=== PATIENT | male | born 1955 | race Caucasian/White ===

== ENCOUNTER 2021-03-28 05:02 | Inpatient (IN) | payer MEDICARE, OTHER ==
[~2021-03-28] VITALS: Ht 165.1 cm; Wt 90.7 kg
[2021-03-28] MEDS ORDERED: LIDOCAINE 2% JEL UROJET 10 ML MM ONE ×2 (05:15→05:30)
[2021-03-28 05:30] LABS: BASOPHILS % (AUTO) 0.7 % (0.0-2.0); EOSINOPHILS % (AUTO) 2.5 % (0.0-6.0); HEMATOCRIT 35 % (39-51); HEMOGLOBIN 12.3 g/dL (13.5-17.5); LYMPHOCYTES # (AUTO) 1.1 K/uL (0.8-4.8); LYMPHOCYTES % (AUTO) 17.5 % (20.0-44.0); MEAN CORPUSCULAR HGB CONC 35 g/dl (31.0-36.0); MEAN CORPUSCULAR VOLUME 96 fL (80-96); MONOCYTES # (AUTO) 0.6 K/uL (0.1-1.30); MONOCYTES % (AUTO) 9.9 % (2.0-12.0); NEUTROPHILS # (AUTO) 4.5 K/uL (1.8-8.9); NEUTROPHILS % (AUTO) 69.4 % (43.0-81.0); PLATELET COUNT (AUTO) 210 K/uL (150-450); RED BLOOD CELL COUNT(AUTO) 3.64 MIL/uL (4.5-6.0); WHITE BLOOD COUNT (AUTO) 6.5 K/uL (4.3-11.0)
[2021-03-28 05:33] LABS: CARBON DIOXIDE 22 mmol/L (21-32); CHLORIDE 111 mmol/L (98-107); CREATININE 1.7 mg/dL (0.6-1.3); GLUCOSE 134 mg/dL (74-106); SODIUM SERUM 146 mmol/L (136-145); UREA NITROGEN, BLOOD 24 mg/dL (7-18)
[2021-03-28 05:37] LABS: BILIRUBIN,URINE Negative (NEGATIVE); COLOR,URINE YELLOW (YELLOW); LEUKOCYTE ESTERASE ,URINE Negative (NEGATIVE); NITRITE, URINE Negative (NEGATIVE); PROTEIN,URINE Negative (NEGATIVE); UGLUCOSE Negative (NEGATIVE); UROBILINOGEN,URINE 0.2 EU/dL (0.2)
[2021-03-28 05:39] LABS: ALANINE AMINOTRANSFERASE 22 U/L (12-78); ALBUMIN 3.7 g/dL (3.4-5.0); ALCOHOL, BLOOD < 3 mg/dL (0-0); ALKALINE PHOSPHATASE 72 U/L (46-116); ASPARTATE AMINOTRANSFERASE 23 U/L (15-37); BILIRUBIN,DIRECT 0.2 mg/dL (0.0-0.2); BILIRUBIN,TOTAL 0.6 mg/dL (0.2-1.0); TOTAL PROTEIN, SERUM 6.6 g/dL (6.4-8.2)
[2021-03-28 05:40] LABS: ACETAMINOPHEN < 0 ug/ml (10-30)
[2021-03-28] MEDS ORDERED: HALOPERIDOL LACTATE INJ 5 MG/ML VIAL IM ONE (13:00)
[2021-03-28] MEDS ORDERED: LORAZEPAM INJ 2 MG/ML VIAL IM/IV ONE (13:00)
[2021-03-28] MEDS ORDERED: diphenhydrAMINE HCL 50 MG/ML VIAL IM ONE (13:00)
[2021-03-28] MEDS ORDERED: diphenhydrAMINE HCL 50 MG/ML VIAL ONE (13:16)
[2021-03-28] MEDS ORDERED: HALOPERIDOL LACTATE INJ 5 MG/ML VIAL ONE (13:16)
[2021-03-28] MEDS ORDERED: LORAZEPAM INJ 2 MG/ML VIAL ONE (13:17)
[2021-03-28 16:15] VITALS: BP 150/57
[2021-03-28] MEDS ORDERED: MAGNESIUM HYDROXIDE 30 ML UDC PO PRN (16:30)
[2021-03-28] MEDS ORDERED: BLOOD SUGAR DIAGNOSTIC 1 EACH STRIP IN ONE (16:30)
[2021-03-28 17:07] VITALS: BP 120/57
[2021-03-28] MEDS: LORAZEPAM 0.5 MG TABLET PO PRN (18:06)
[2021-03-28 20:16] VITALS: BP 116/83
[2021-03-29] MEDS: LORAZEPAM 0.5 MG TABLET PO PRN ×3 (03:39→23:37)
[2021-03-29 08:00] VITALS: BP 112/78
[2021-03-29 08:15] LABS: ALBUMIN 3.9 g/dL (3.4-5.0); BILIRUBIN,TOTAL 0.6 mg/dL (0.2-1.0); CALCIUM, SERUM 8.7 mg/dL (8.5-10.1); CREATININE 1.8 mg/dL (0.6-1.3); TOTAL PROTEIN, SERUM 7.2 g/dL (6.4-8.2)
[2021-03-29 08:29] LABS: THYROID STIMULATING HORMONE 0.606 uIU/mL (0.358-3.74)
[2021-03-29] MEDS: OLANZAPINE 2.5 MG TABLET PO SCH ×2 (13:45→20:53)
[2021-03-29] MEDS: ESCITALOPRAM OXALATE (10 MG) 10 MG TABLET PO SCH (13:46)
[2021-03-29 16:00] VITALS: BP 123/76
[2021-03-29 21:00] VITALS: BP 114/75
[2021-03-30] MEDS: LORAZEPAM 0.5 MG TABLET PO PRN ×2 (05:56→16:04)
[2021-03-30 08:00] VITALS: BP 112/79
[2021-03-30] MEDS: ESCITALOPRAM OXALATE (10 MG) 10 MG TABLET PO SCH (08:45)
[2021-03-30] MEDS: OLANZAPINE 2.5 MG TABLET PO SCH (08:45)
[2021-03-30] MEDS ORDERED: OLANZAPINE 10 MG VIAL IM STA (11:39)
[2021-03-30 16:25] LABS: CREATININE 1.6 mg/dL (0.6-1.3); POTASSIUM 4.1 mmol/L (3.5-5.1)
[2021-03-30] MEDS: risperiDONE 1 MG TABLET PO SCH (18:23)
[2021-03-30 20:21] VITALS: BP 115/73
[2021-03-30] MEDS: ZOLPIDEM TARTRATE 5 MG TABLET PO PRN (22:51)
[2021-03-31] MEDS: ESCITALOPRAM OXALATE (10 MG) 10 MG TABLET PO SCH (08:16)
[2021-03-31] MEDS: risperiDONE 1 MG TABLET PO SCH ×2 (08:16→17:19)
[2021-03-31] MEDS: LORAZEPAM 0.5 MG TABLET PO PRN ×2 (08:21→22:33)
[2021-03-31 08:26] VITALS: BP 119/77
[2021-03-31 16:00] VITALS: BP 133/69
[2021-03-31 20:00] VITALS: BP 113/77
[2021-03-31] MEDS: ZOLPIDEM TARTRATE 5 MG TABLET PO PRN (21:48)
[2021-04-01] MEDS: ACETAMINOPHEN 325 MG TABLET PO PRN (00:49)
[2021-04-01] MEDS: LORAZEPAM 0.5 MG TABLET PO PRN ×2 (05:59→21:09)
[2021-04-01 08:00] VITALS: BP 105/74
[2021-04-01] MEDS: risperiDONE 1 MG TABLET PO SCH ×2 (09:32→17:00)
[2021-04-01] MEDS: ESCITALOPRAM OXALATE (10 MG) 10 MG TABLET PO SCH (09:32)
[2021-04-01 16:35] VITALS: BP 124/69
[2021-04-01] MEDS: MAG HYDROX/AL HYDROX/SIMETH 30 ML UDC PO PRN (19:43)
[2021-04-01 20:00] VITALS: BP 136/76
[2021-04-02] MEDS: ZOLPIDEM TARTRATE 5 MG TABLET PO PRN ×2 (01:40→23:41)
[2021-04-02] MEDS: ACETAMINOPHEN 325 MG TABLET PO PRN ×2 (06:31→18:41)
[2021-04-02 08:00] VITALS: BP 126/85
[2021-04-02] MEDS: ESCITALOPRAM OXALATE (10 MG) 10 MG TABLET PO SCH (08:35)
[2021-04-02] MEDS: risperiDONE 1 MG TABLET PO SCH ×2 (08:35→16:03)
[2021-04-02] MEDS: CHOLECALCIFEROL 1,000 UNIT TABLET (VIT D3) PO SCH (15:56)
[2021-04-02] MEDS: OLOPATADINE HCL 0.1% OPHTH BOTTLE EACHEYE SCH (16:02)
[2021-04-02] MEDS: MAG HYDROX/AL HYDROX/SIMETH 30 ML UDC PO PRN (18:51)
[2021-04-02 20:00] VITALS: BP 119/75
[2021-04-02] MEDS: ATORVASTATIN 40 MG TABLET PO SCH (22:03)
[2021-04-02] MEDS: LORAZEPAM 0.5 MG TABLET PO PRN (22:04)
[2021-04-03] MEDS: MAG HYDROX/AL HYDROX/SIMETH 30 ML UDC PO PRN ×2 (06:57→20:57)
[2021-04-03] MEDS: LORAZEPAM 0.5 MG TABLET PO PRN ×2 (07:41→23:55)
[2021-04-03 08:00] VITALS: BP 121/98
[2021-04-03] MEDS: OLOPATADINE HCL 0.1% OPHTH BOTTLE EACHEYE SCH ×2 (08:26→16:16)
[2021-04-03] MEDS: CHOLECALCIFEROL 1,000 UNIT TABLET (VIT D3) PO SCH (08:26)
[2021-04-03] MEDS: risperiDONE 1 MG TABLET PO SCH ×2 (08:27→16:16)
[2021-04-03] MEDS: ESCITALOPRAM OXALATE (10 MG) 10 MG TABLET PO SCH (08:28)
[2021-04-03] MEDS ORDERED: CHOLECALCIFEROL (VITAMIN D 3) 400 UNIT TABLET PO SCH (09:00)
[2021-04-03 16:00] VITALS: BP 109/88
[2021-04-03 19:46] VITALS: BP 110/73
[2021-04-03] MEDS: ATORVASTATIN 40 MG TABLET PO SCH (20:57)
[2021-04-03] MEDS: ZOLPIDEM TARTRATE 5 MG TABLET PO PRN (20:57)
[2021-04-04 07:30] LABS: CALCIUM, SERUM 9.2 mg/dL (8.5-10.1); CREATININE 1.7 mg/dL (0.6-1.3); MAGNESIUM 2.4 mg/dL (1.8-2.4); PHOSPHORUS 3.1 mg/dL (2.5-4.9); POTASSIUM 4.4 mmol/L (3.5-5.1)
[2021-04-04 08:00] VITALS: BP 106/75
[2021-04-04] MEDS: risperiDONE 1 MG TABLET PO SCH (08:01)
[2021-04-04] MEDS: ESCITALOPRAM OXALATE (10 MG) 10 MG TABLET PO SCH (08:01)
[2021-04-04] MEDS: CHOLECALCIFEROL 1,000 UNIT TABLET (VIT D3) PO SCH (08:01)
[2021-04-04] MEDS: OLOPATADINE HCL 0.1% OPHTH BOTTLE EACHEYE SCH ×2 (09:27→16:39)
[2021-04-04] MEDS: LORAZEPAM 0.5 MG TABLET PO PRN ×2 (09:48→16:37)
[2021-04-04] MEDS ORDERED: OLANZAPINE 10 MG VIAL IM ONE (10:30)
[2021-04-04] MEDS: ZIPRASIDONE 20 MG CAPSULE PO SCH (16:37)
[2021-04-04 19:56] VITALS: BP 131/76
[2021-04-04] MEDS: ATORVASTATIN 40 MG TABLET PO SCH (21:21)
[2021-04-04] MEDS: ZOLPIDEM TARTRATE 5 MG TABLET PO PRN (21:36)
[2021-04-05 08:00] VITALS: BP 130/90
[2021-04-05] MEDS: CHOLECALCIFEROL 1,000 UNIT TABLET (VIT D3) PO SCH (08:22)
[2021-04-05] MEDS: ESCITALOPRAM OXALATE (10 MG) 10 MG TABLET PO SCH (08:22)
[2021-04-05] MEDS: LORAZEPAM 0.5 MG TABLET PO PRN ×2 (08:22→14:22)
[2021-04-05] MEDS: ZIPRASIDONE 20 MG CAPSULE PO SCH ×2 (08:22→17:12)
[2021-04-05] MEDS: OLOPATADINE HCL 0.1% OPHTH BOTTLE EACHEYE SCH ×2 (09:00→17:00)
[2021-04-05 16:00] VITALS: BP 118/85
[2021-04-05 19:39] VITALS: BP 105/56
[2021-04-05] MEDS: ATORVASTATIN 40 MG TABLET PO SCH (21:14)
[2021-04-05] MEDS: ZOLPIDEM TARTRATE 5 MG TABLET PO PRN (21:27)
[2021-04-06] MEDS: LORAZEPAM 0.5 MG TABLET PO PRN ×2 (05:04→17:45)
[2021-04-06 08:00] VITALS: BP 125/75
[2021-04-06] MEDS: CHOLECALCIFEROL 1,000 UNIT TABLET (VIT D3) PO SCH (08:12)
[2021-04-06] MEDS: ESCITALOPRAM OXALATE (10 MG) 10 MG TABLET PO SCH (08:13)
[2021-04-06] MEDS: ZIPRASIDONE 20 MG CAPSULE PO SCH ×2 (08:15→17:45)
[2021-04-06] MEDS: OLOPATADINE HCL 0.1% OPHTH BOTTLE EACHEYE SCH ×2 (08:19→17:57)
[2021-04-06] MEDS ORDERED: diphenhydrAMINE HCL 50 MG/ML VIAL IM ONE (10:00)
[2021-04-06] MEDS ORDERED: LORAZEPAM INJ 2 MG/ML VIAL IM ONE (10:00)
[2021-04-06] MEDS ORDERED: HALOPERIDOL LACTATE INJ 5 MG/ML VIAL IM ONE (10:00)
[2021-04-06] MEDS ORDERED: MAGNESIUM CITRATE 296 ML BOTTLE PO ONE (11:30)
[2021-04-06 17:49] VITALS: BP 128/80
[2021-04-06 20:00] VITALS: BP 104/54
[2021-04-06] MEDS: ZOLPIDEM TARTRATE 5 MG TABLET PO PRN (21:55)
[2021-04-06] MEDS: ATORVASTATIN 40 MG TABLET PO SCH (21:55)
[2021-04-07] MEDS: LORAZEPAM 0.5 MG TABLET PO PRN
[2021-04-07] MEDS ORDERED: diphenhydrAMINE HCL 50 MG/ML VIAL IM ONE (04:30)
[2021-04-07] MEDS ORDERED: LORAZEPAM INJ 2 MG/ML VIAL IM ONE (04:30)
[2021-04-07] MEDS ORDERED: HALOPERIDOL LACTATE INJ 5 MG/ML VIAL IM ONE (04:30)
[2021-04-07 08:00] VITALS: BP 117/79
[2021-04-07] MEDS: CHOLECALCIFEROL 1,000 UNIT TABLET (VIT D3) PO SCH (08:27)
[2021-04-07] MEDS: ESCITALOPRAM OXALATE (10 MG) 10 MG TABLET PO SCH (08:27)
[2021-04-07] MEDS: ZIPRASIDONE 20 MG CAPSULE PO SCH ×2 (08:30→17:17)
[2021-04-07] MEDS: OLOPATADINE HCL 0.1% OPHTH BOTTLE EACHEYE SCH ×2 (08:32→16:39)
[2021-04-07] MEDS: clonazePAM 0.5 MG TABLET PO SCH ×3 (09:26→17:17)
[2021-04-07] MEDS ORDERED: diphenhydrAMINE HCL 50 MG/ML VIAL IM STA (14:08)
[2021-04-07] MEDS ORDERED: HALOPERIDOL LACTATE INJ 5 MG/ML VIAL IM STA (14:08)
[2021-04-07] MEDS: MAG HYDROX/AL HYDROX/SIMETH 30 ML UDC PO PRN (15:22)
[2021-04-07 16:00] VITALS: BP 113/82
[2021-04-07 20:00] VITALS: BP 107/75
[2021-04-07] MEDS: ATORVASTATIN 40 MG TABLET PO SCH (21:04)
[2021-04-07] MEDS: ZOLPIDEM TARTRATE 5 MG TABLET PO PRN (21:05)
[2021-04-08] MEDS: hydrOXYzine PAMOATE 25 MG CAPSULE PO PRN (06:24)
[2021-04-08 08:00] VITALS: BP 134/75
[2021-04-08] MEDS: OLOPATADINE HCL 0.1% OPHTH BOTTLE EACHEYE SCH ×2 (08:12→17:28)
[2021-04-08] MEDS: clonazePAM 0.5 MG TABLET PO SCH ×3 (08:12→17:27)
[2021-04-08] MEDS: ZIPRASIDONE 20 MG CAPSULE PO SCH (08:12)
[2021-04-08] MEDS: CHOLECALCIFEROL 1,000 UNIT TABLET (VIT D3) PO SCH (08:12)
[2021-04-08] MEDS ORDERED: HALOPERIDOL LACTATE INJ 5 MG/ML VIAL IM STA (09:59)
[2021-04-08] MEDS ORDERED: diphenhydrAMINE HCL 50 MG/ML VIAL IM STA (09:59)
[2021-04-08] MEDS: GABAPENTIN 100 MG CAPSULE PO SCH ×2 (12:51→17:27)
[2021-04-08 16:00] VITALS: BP 113/82
[2021-04-08] MEDS: ACETAMINOPHEN 325 MG TABLET PO PRN (16:15)
[2021-04-08] MEDS: risperiDONE 1 MG TABLET PO SCH (17:56)
[2021-04-08 20:00] VITALS: BP 96/53
[2021-04-08] MEDS: ATORVASTATIN 40 MG TABLET PO SCH (21:07)
[2021-04-08] MEDS: ZOLPIDEM TARTRATE 5 MG TABLET PO PRN (21:07)
[2021-04-09] MEDS: hydrOXYzine PAMOATE 25 MG CAPSULE PO PRN (00:03)
[2021-04-09] MEDS: ACETAMINOPHEN 325 MG TABLET PO PRN (00:10)
[2021-04-09] MEDS ORDERED: diphenhydrAMINE HCL 50 MG/ML VIAL IM STA (07:28)
[2021-04-09] MEDS ORDERED: HALOPERIDOL LACTATE INJ 5 MG/ML VIAL IM STA (07:28)
[2021-04-09 08:00] VITALS: BP 115/68
[2021-04-09] MEDS: GABAPENTIN 100 MG CAPSULE PO SCH ×3 (08:25→16:00)
[2021-04-09] MEDS: risperiDONE 1 MG TABLET PO SCH ×3 (08:25→16:00)
[2021-04-09] MEDS: CHOLECALCIFEROL 1,000 UNIT TABLET (VIT D3) PO SCH (08:25)
[2021-04-09] MEDS: clonazePAM 0.5 MG TABLET PO SCH ×3 (08:25→16:00)
[2021-04-09] MEDS: OLOPATADINE HCL 0.1% OPHTH BOTTLE EACHEYE SCH ×2 (08:47→16:05)
[2021-04-09 16:02] VITALS: BP 124/81
[2021-04-09] MEDS: ATORVASTATIN 40 MG TABLET PO SCH (22:24)
[2021-04-10 08:00] VITALS: BP 100/65
[2021-04-10] MEDS: OLOPATADINE HCL 0.1% OPHTH BOTTLE EACHEYE SCH ×2 (08:10→16:08)
[2021-04-10] MEDS: risperiDONE 1 MG TABLET PO SCH ×3 (08:11→16:09)
[2021-04-10] MEDS: clonazePAM 0.5 MG TABLET PO SCH ×3 (08:11→16:08)
[2021-04-10] MEDS: ACETAMINOPHEN 325 MG TABLET PO PRN (08:12)
[2021-04-10] MEDS: GABAPENTIN 100 MG CAPSULE PO SCH ×3 (08:12→16:08)
[2021-04-10] MEDS: CHOLECALCIFEROL 1,000 UNIT TABLET (VIT D3) PO SCH (08:12)
[2021-04-10 16:00] VITALS: BP 126/66
[2021-04-10] MEDS: hydrOXYzine PAMOATE 25 MG CAPSULE PO PRN (18:02)
[2021-04-10 20:00] VITALS: BP 122/65
[2021-04-10] MEDS: ATORVASTATIN 40 MG TABLET PO SCH (21:07)
[2021-04-10] MEDS: MAG HYDROX/AL HYDROX/SIMETH 30 ML UDC PO PRN (21:07)
[2021-04-10] MEDS: ZOLPIDEM TARTRATE 5 MG TABLET PO PRN (21:08)
[2021-04-11] MEDS: hydrOXYzine PAMOATE 25 MG CAPSULE PO PRN (02:42)
[2021-04-11] MEDS: ACETAMINOPHEN 325 MG TABLET PO PRN ×2 (02:43→20:07)
[2021-04-11 08:00] VITALS: BP 110/78
[2021-04-11] MEDS: GABAPENTIN 100 MG CAPSULE PO SCH ×3 (08:20→16:00)
[2021-04-11] MEDS: CHOLECALCIFEROL 1,000 UNIT TABLET (VIT D3) PO SCH (08:20)
[2021-04-11] MEDS: clonazePAM 0.5 MG TABLET PO SCH ×3 (08:20→16:00)
[2021-04-11] MEDS: OLOPATADINE HCL 0.1% OPHTH BOTTLE EACHEYE SCH ×2 (08:21→16:03)
[2021-04-11] MEDS: risperiDONE 1 MG TABLET PO SCH ×3 (08:21→16:00)
[2021-04-11 16:00] VITALS: BP 125/64
[2021-04-11 19:54] VITALS: BP 125/90
[2021-04-11 20:15] VITALS: BP 125/90
[2021-04-11] MEDS: ATORVASTATIN 40 MG TABLET PO SCH (21:50)
[2021-04-11] MEDS: ZOLPIDEM TARTRATE 5 MG TABLET PO PRN (22:02)
[2021-04-12] MEDS: risperiDONE 1 MG TABLET PO SCH ×3 (07:58→17:00)
[2021-04-12] MEDS: hydrOXYzine PAMOATE 25 MG CAPSULE PO PRN (07:58)
[2021-04-12] MEDS: GABAPENTIN 100 MG CAPSULE PO SCH ×3 (07:58→17:00)
[2021-04-12] MEDS: clonazePAM 0.5 MG TABLET PO SCH ×3 (07:58→17:00)
[2021-04-12 08:00] VITALS: BP 123/87
[2021-04-12] MEDS: CHOLECALCIFEROL 1,000 UNIT TABLET (VIT D3) PO SCH (08:05)
[2021-04-12] MEDS: OLOPATADINE HCL 0.1% OPHTH BOTTLE EACHEYE SCH ×2 (09:19→17:00)
[2021-04-12] MEDS ORDERED: HALOPERIDOL LACTATE INJ 5 MG/ML VIAL IM ONE ×2 (13:00→16:30)
[2021-04-12] MEDS ORDERED: diphenhydrAMINE HCL 50 MG/ML VIAL IM ONE ×2 (13:00→16:30)
[2021-04-12] MEDS ORDERED: LORAZEPAM INJ 2 MG/ML VIAL IM ONE ×2 (13:00→16:30)
[2021-04-12] MEDS ORDERED: diphenhydrAMINE HCL 50 MG/ML VIAL IM PRN (13:00)
[2021-04-12] MEDS ORDERED: LORAZEPAM INJ 2 MG/ML VIAL IM PRN (13:00)
[2021-04-12 16:00] VITALS: BP 136/64
[2021-04-12] MEDS ORDERED: LORAZEPAM INJ 2 MG/ML VIAL IM STA (16:09)
[2021-04-12] MEDS ORDERED: HALOPERIDOL LACTATE INJ 5 MG/ML VIAL IM STA (16:09)
[2021-04-12] MEDS ORDERED: diphenhydrAMINE HCL 50 MG/ML VIAL IM STA (16:09)
[2021-04-12] MEDS ORDERED: LORAZEPAM INJ 2 MG/ML VIAL ONE (16:38)
[2021-04-12] MEDS ORDERED: HALOPERIDOL LACTATE INJ 5 MG/ML VIAL ONE (16:44)
[2021-04-12] MEDS: ATORVASTATIN 40 MG TABLET PO SCH (21:17)
[2021-04-13] MEDS: ZOLPIDEM TARTRATE 5 MG TABLET PO PRN (01:01)
[2021-04-13] MEDS: ACETAMINOPHEN 325 MG TABLET PO PRN ×2 (01:41→13:56)
[2021-04-13] MEDS ORDERED: HALOPERIDOL LACTATE INJ 5 MG/ML VIAL IM ONE (02:30)
[2021-04-13] MEDS ORDERED: diphenhydrAMINE HCL 50 MG/ML VIAL IM ONE (02:30)
[2021-04-13] MEDS ORDERED: LORAZEPAM INJ 2 MG/ML VIAL IM ONE (02:30)
[2021-04-13 08:00] VITALS: BP 148/81
[2021-04-13] MEDS: clonazePAM 0.5 MG TABLET PO SCH ×3 (09:36→16:50)
[2021-04-13] MEDS: OLOPATADINE HCL 0.1% OPHTH BOTTLE EACHEYE SCH ×2 (09:36→16:51)
[2021-04-13] MEDS: risperiDONE 1 MG TABLET PO SCH ×3 (09:36→16:50)
[2021-04-13] MEDS: GABAPENTIN 100 MG CAPSULE PO SCH ×3 (09:36→16:50)
[2021-04-13] MEDS: CHOLECALCIFEROL 1,000 UNIT TABLET (VIT D3) PO SCH (09:37)
[2021-04-13] MEDS: hydrOXYzine PAMOATE 25 MG CAPSULE PO PRN (09:58)
[2021-04-13] MEDS ORDERED: HALOPERIDOL LACTATE INJ 5 MG/ML VIAL IM STA (15:02)
[2021-04-13] MEDS ORDERED: LORAZEPAM INJ 2 MG/ML VIAL IM STA ×2 (15:02→17:05)
[2021-04-13] MEDS ORDERED: diphenhydrAMINE HCL 50 MG/ML VIAL IM STA (15:02)
[2021-04-13 16:00] VITALS: BP 103/57
[2021-04-13 16:01] VITALS: BP 104/72
[2021-04-13] MEDS: ATORVASTATIN 40 MG TABLET PO SCH (21:19)
[2021-04-13 22:30] VITALS: BP 118/60
[2021-04-14] MEDS: ACETAMINOPHEN 325 MG TABLET PO PRN ×2 (02:00→21:38)
[2021-04-14] MEDS: ZOLPIDEM TARTRATE 5 MG TABLET PO PRN ×2 (02:00→21:22)
[2021-04-14] MEDS: hydrOXYzine PAMOATE 25 MG CAPSULE PO PRN (04:05)
[2021-04-14 08:00] VITALS: BP 112/86
[2021-04-14] MEDS: risperiDONE 1 MG TABLET PO SCH ×3 (08:22→17:04)
[2021-04-14] MEDS: GABAPENTIN 100 MG CAPSULE PO SCH (08:22)
[2021-04-14] MEDS: clonazePAM 0.5 MG TABLET PO SCH ×3 (08:22→17:04)
[2021-04-14] MEDS: CHOLECALCIFEROL 1,000 UNIT TABLET (VIT D3) PO SCH (08:22)
[2021-04-14] MEDS: OLOPATADINE HCL 0.1% OPHTH BOTTLE EACHEYE SCH ×2 (08:26→17:04)
[2021-04-14] MEDS: GABAPENTIN 300 MG CAPSULE PO SCH ×2 (12:26→17:03)
[2021-04-14 16:00] VITALS: BP 137/60
[2021-04-14 20:00] VITALS: BP 113/68
[2021-04-14] MEDS: ATORVASTATIN 40 MG TABLET PO SCH (21:22)
[2021-04-15 08:00] VITALS: BP 113/60
[2021-04-15] MEDS: OLOPATADINE HCL 0.1% OPHTH BOTTLE EACHEYE SCH (08:13)
[2021-04-15] MEDS: clonazePAM 0.5 MG TABLET PO SCH ×2 (08:24→12:44)
[2021-04-15] MEDS: CHOLECALCIFEROL 1,000 UNIT TABLET (VIT D3) PO SCH (08:24)
[2021-04-15] MEDS: risperiDONE 1 MG TABLET PO SCH ×2 (08:24→12:45)
[2021-04-15] MEDS: GABAPENTIN 300 MG CAPSULE PO SCH ×2 (08:24→12:45)
[2021-04-15] MEDS ORDERED: AMOX/CLAVULANATE 875 MG TABLET PO SCH (09:00)
== END 2021-04-15 16:05 | disposition home or self-care (01) | DRG 885 ==
LOC: ER 05:09 → GPS 15:08
PROVIDERS: ADMIT Psychiatry & Neurology Psychiatry; ATTEND Registered Nurse
DX: F31.5 Bipolar disorder, current episode depressed, severe, with psychotic features (principal); N17.9 Acute kidney failure, unspecified; N18.9 Chronic kidney disease, unspecified; E87.0 Hyperosmolality and hypernatremia; R45.851 Suicidal ideations; D64.9 Anemia, unspecified; E86.0 Dehydration; Z20.822 Contact with and (suspected) exposure to COVID-19; Z88.7 Allergy status to serum and vaccine; T43.592D Poisoning by other antipsychotics and neuroleptics, intentional self-harm, subsequent encounter; E87.6 Hypokalemia; E78.5 Hyperlipidemia, unspecified; Z68.33 Body mass index [BMI] 33.0-33.9, adult; E66.9 Obesity, unspecified; R41.9 Unspecified symptoms and signs involving cognitive functions and awareness; H10.10 Acute atopic conjunctivitis, unspecified eye
CPT/HCPCS: 36415; 70160-TC; 80048-TC; 80053-TC; 80061-TC; 80076-TC; 82550-TC; 82553; 83735-TC; 84100-TC; 84443-TC; 85025-TC; 87081-TC; C9803; G0480; J1200; J1630; J2060; J3230; J3490; Q0177

== ENCOUNTER 2021-04-17 19:58 | Emergency (ER) | payer MEDICARE, MEDICAID ==
[~2021-04-17] VITALS: Ht 165.1 cm; Wt 77.1 kg
--- NOTE | 2021-04-17 20:09 | NUR ---
PT BIBRA 88 FROM HOME FOR "UNABLE TO GET UP FROM COUCH". NOTED W/ HIGH HEART. A/Ox3. NOTED WITH SLURRED SPEACH. CONNECTED TO MONITOR AND POX. ON ROOM AIR; TOLERATING AT 98%
[2021-04-17] MEDS ORDERED: ACETAMINOPHEN ES 500 MG TABLET PO ONE (20:30)
[2021-04-17] MEDS ORDERED: IV NS 0.9% 1,000 ML BAG IV ONE (20:30)
[2021-04-17] MEDS ORDERED: ACETAMINOPHEN ES 500 MG TABLET ONE (20:45)
[2021-04-17 21:02] LABS: BASOPHILS # (AUTO) 0.1 K/uL (0.0-0.2); BASOPHILS % (AUTO) 0.8 % (0.0-2.0); EOSINOPHILS % (AUTO) 3.9 % (0.0-6.0); HEMATOCRIT 29 % (39-51); HEMOGLOBIN 10.1 g/dL (13.5-17.5); LYMPHOCYTES # (AUTO) 1.4 K/uL (0.8-4.8); LYMPHOCYTES % (AUTO) 17.7 % (20.0-44.0); MEAN CORPUSCULAR HGB CONC 34 g/dl (31.0-36.0); MEAN CORPUSCULAR VOLUME 100 fL (80-96); MONOCYTES # (AUTO) 0.8 K/uL (0.1-1.30); MONOCYTES % (AUTO) 10.4 % (2.0-12.0); NEUTROPHILS # (AUTO) 5.3 K/uL (1.8-8.9); NEUTROPHILS % (AUTO) 67.2 % (43.0-81.0); PLATELET COUNT (AUTO) 289 K/uL (150-450); RED BLOOD CELL COUNT(AUTO) 2.95 MIL/uL (4.5-6.0); WHITE BLOOD COUNT (AUTO) 7.9 K/uL (4.3-11.0)
[2021-04-17 21:30] LABS: ALANINE AMINOTRANSFERASE 26 U/L (12-78); ALBUMIN 2.7 g/dL (3.4-5.0); ALKALINE PHOSPHATASE 70 U/L (46-116); ASPARTATE AMINOTRANSFERASE 23 U/L (15-37); BILIRUBIN,DIRECT 0.2 mg/dL (0.0-0.2); BILIRUBIN,TOTAL 0.4 mg/dL (0.2-1.0); CALCIUM, SERUM 7.7 mg/dL (8.5-10.1); CARBON DIOXIDE 24 mmol/L (21-32); CHLORIDE 110 mmol/L (98-107); CREATININE 1.8 mg/dL (0.6-1.3); GLUCOSE 93 mg/dL (74-106); POTASSIUM 3.7 mmol/L (3.5-5.1); SODIUM SERUM 145 mmol/L (136-145); TOTAL PROTEIN, SERUM 5.8 g/dL (6.4-8.2); UREA NITROGEN, BLOOD 25 mg/dL (7-18)
--- NOTE | 2021-04-17 21:54 | NUR ---
URINE SAMPLE COLLECTED AND SENT TO LAB
[2021-04-17 22:56] LABS: BILIRUBIN,URINE NEGATIVE (NEGATIVE); COLOR,URINE YELLOW (YELLOW); LEUKOCYTE ESTERASE ,URINE NEGATIVE (NEGATIVE); NITRITE, URINE NEGATIVE (NEGATIVE); PROTEIN,URINE NEGATIVE (NEGATIVE); UGLUCOSE NEGATIVE (NEGATIVE); UROBILINOGEN,URINE 0.2 EU/dL (0.2)
[2021-04-17] MEDS ORDERED: ACET-2605 PO (23:16)
--- NOTE | 2021-04-17 23:37 | NUR ---
Patient discharged to home in stable condition. Written and verbal after care instructions given. Patient verbalizes understanding of instruction. IV DCED. PT AMBULATORY
[2021-04-17 23:39] VITALS: BP 103/68
== END 2021-04-17 23:37 | disposition home or self-care (01) ==
LOC: ER 20:29
DX: E86.0 Dehydration (principal); N28.9 Disorder of kidney and ureter, unspecified; D53.9 Nutritional anemia, unspecified; J45.909 Unspecified asthma, uncomplicated; R00.0 Tachycardia, unspecified; I44.4 Left anterior fascicular block; Z20.822 Contact with and (suspected) exposure to COVID-19
CPT/HCPCS: 36415; 71045; 80048; 80076; 81003; 83605; 84484; 85025; 85730; 87040 ×2; 87086; 87426; 93005; 96360; 99285; J7030; C9803

== ENCOUNTER 2021-04-19 18:34 | Emergency (ER) | payer MEDICARE, OTHER ==
[~2021-04-19] VITALS: Ht 175.3 cm; Wt 56.7 kg
[~2021-04-19 18:34] MED LIST: ACET-2605 PO
--- NOTE | 2021-04-19 18:34 | NUR ---
PT BIBRA 839 FROM HOME C/O WEAKNESS AND FEVER. PT IS AAOX3, NOT IN RESPIRATORY DISTRESS, HOOKED TO LOW HEEL BUILDER, KEPT RESTED AND COMFORTABLE. WILL CONTINUE TO MONITOR.
--- NOTE | 2021-04-19 19:10 | NUR ---
IV LINE ESTABLISHED BLOOD DRAWN AND SENT TO LAB.
[2021-04-19] MEDS ORDERED: IV NS 0.9% 1,000 ML BAG IV ONE (19:30)
[2021-04-19] MEDS ORDERED: ACETAMINOPHEN ES 500 MG TABLET PO ONE (19:30)
--- NOTE | 2021-04-19 19:43 | NUR ---
URINE OBTAINED AND SENT TO LAB
[2021-04-19] MEDS ORDERED: ACETAMINOPHEN ES 500 MG TABLET ONE (19:49)
[2021-04-19 20:23] LABS: ALANINE AMINOTRANSFERASE 26 U/L (12-78); ALBUMIN 2.9 g/dL (3.4-5.0); ALKALINE PHOSPHATASE 71 U/L (46-116); ASPARTATE AMINOTRANSFERASE 19 U/L (15-37); BILIRUBIN,DIRECT 0.1 mg/dL (0.0-0.2); BILIRUBIN,TOTAL 0.3 mg/dL (0.2-1.0); CALCIUM, SERUM 8.4 mg/dL (8.5-10.1); CARBON DIOXIDE 25 mmol/L (21-32); CHLORIDE 112 mmol/L (98-107); CREATININE 1.8 mg/dL (0.6-1.3); GLUCOSE 125 mg/dL (74-106); POTASSIUM 3.9 mmol/L (3.5-5.1); SODIUM SERUM 147 mmol/L (136-145); TOTAL PROTEIN, SERUM 6.3 g/dL (6.4-8.2); UREA NITROGEN, BLOOD 17 mg/dL (7-18)
[2021-04-19 20:49] LABS: BASOPHILS % (AUTO) 0.6 % (0.0-2.0); EOSINOPHILS % (AUTO) 4.8 % (0.0-6.0); HEMATOCRIT 29 % (39-51); HEMOGLOBIN 10.1 g/dL (13.5-17.5); LYMPHOCYTES % (AUTO) 14.2 % (20.0-44.0); MEAN CORPUSCULAR HGB CONC 35 g/dl (31.0-36.0); MEAN CORPUSCULAR VOLUME 98 fL (80-96); MONOCYTES # (AUTO) 0.7 K/uL (0.1-1.30); NEUTROPHILS % (AUTO) 70.4 % (43.0-81.0); PLATELET COUNT (AUTO) 300 K/uL (150-450); RED BLOOD CELL COUNT(AUTO) 2.93 MIL/uL (4.5-6.0); WHITE BLOOD COUNT (AUTO) 7.2 K/uL (4.3-11.0)
[2021-04-19 20:57] LABS: BILIRUBIN,URINE NEGATIVE (NEGATIVE); COLOR,URINE YELLOW (YELLOW); LEUKOCYTE ESTERASE ,URINE NEGATIVE (NEGATIVE); NITRITE, URINE NEGATIVE (NEGATIVE); PROTEIN,URINE NEGATIVE (NEGATIVE); UGLUCOSE NEGATIVE (NEGATIVE); UROBILINOGEN,URINE 0.2 EU/dL (0.2)
--- NOTE | 2021-04-19 22:12 | NUR ---
[facility] ETA [phone] HOURS
--- NOTE | 2021-04-20 00:30 | NUR ---
PATIENT IN BED RESTING WATCHING TV. PATIENT VSS. PATIENT IN NO ACUTE DISTRESS NOTED.
--- NOTE | 2021-04-20 01:41 | NUR ---
called [facility] for follow up. Per [facility] dispatch, ems delayed at previous call
--- NOTE | 2021-04-20 02:24 | NUR ---
BRYSON FROM [facility] CALLED. NO UNITS AVAILABLE FOR PICKUP. CANCELLED RIDE.
[2021-04-20 03:53] VITALS: BP 127/61
--- NOTE | 2021-04-20 03:53 | NUR ---
Patient discharged to home in stable condition. Written and verbal after care instructions given. Patient verbalizes understanding of instruction.
== END 2021-04-20 03:54 | disposition home or self-care (01) ==
LOC: ER 18:40 → UNDOADMIN 04-20 03:11 → TRANSITION 04-20 03:11
DX: R53.1 Weakness (principal); I12.9 Hypertensive chronic kidney disease with stage 1 through stage 4 chronic kidney disease, or unspecified chronic kidney disease; N18.9 Chronic kidney disease, unspecified; M79.605 Pain in left leg; Z91.81 History of falling; R00.0 Tachycardia, unspecified; I49.3 Ventricular premature depolarization; R50.9 Fever, unspecified; Z20.822 Contact with and (suspected) exposure to COVID-19; J45.909 Unspecified asthma, uncomplicated; F31.9 Bipolar disorder, unspecified
CPT/HCPCS: 36415; 70450; 71045; 72125; 73552; 80048; 80076; 81003; 83605; 84145; 84484; 85025; 85730; 87040 ×2; 87081; 87086; 87426; 93005; 96360; 99285; L0172; C9803

== ENCOUNTER 2022-04-07 07:20 | Inpatient (IN) | payer MEDICARE, OTHER ==
[~2022-04-07] VITALS: Ht 165.1 cm; Wt 83.5 kg
--- NOTE | 2022-04-07 07:35 | NUR ---
TO ER BED 12. BIB SELF C/O "MANIC EPISODE" SINCE BEGINNING OF MARCH. ANXIOUS CLINICAL TRIALS NURSE. DENIES SI/HI. STATES ANXIOUS AND IRRITABLE. ATTACHED TO MONITOR, HEART RATE ELEVATED, MD AWARE. AWAITING MD ORDERS.
--- NOTE | 2022-04-07 07:40 | NUR ---
DR SAUL AT BEDSIDE FOR EVAL.
[2022-04-07] MEDS ORDERED: LORAZEPAM 1 MG TABLET ONE (07:44)
--- NOTE | 2022-04-07 07:48 | NUR ---
CHILD CARE AT BEDSIDE FOR BLOOD DRAW.
[2022-04-07] MEDS ORDERED: LORAZEPAM 1 MG TABLET PO ONE (08:00)
--- NOTE | 2022-04-07 08:13 | NUR ---
URINE COLLECTED AND SENT
[2022-04-07 08:17] LABS: BASOPHILS % (AUTO) 0.6 % (0.0-2.0); EOSINOPHILS % (AUTO) 1.8 % (0.0-6.0); HEMATOCRIT 35 % (39-51); HEMOGLOBIN 12.1 g/dL (13.5-17.5); LYMPHOCYTES # (AUTO) 0.9 K/uL (0.8-4.8); LYMPHOCYTES % (AUTO) 12.8 % (20.0-44.0); MEAN CORPUSCULAR HGB CONC 35 g/dl (31.0-36.0); MEAN CORPUSCULAR VOLUME 96 fL (80-96); MONOCYTES # (AUTO) 0.9 K/uL (0.1-1.30); NEUTROPHILS % (AUTO) 71.8 % (43.0-81.0); PLATELET COUNT (AUTO) 225 K/uL (150-450); RED BLOOD CELL COUNT(AUTO) 3.64 MIL/uL (4.5-6.0)
--- NOTE | 2022-04-07 08:29 | NUR ---
COVID TEST COLLECTED AND SENT
[2022-04-07 08:32] LABS: BILIRUBIN,URINE NEGATIVE (NEGATIVE); COLOR,URINE YELLOW (YELLOW); LEUKOCYTE ESTERASE ,URINE NEGATIVE (NEGATIVE); NITRITE, URINE NEGATIVE (NEGATIVE); PH,URINE 5.5 (5.0-8.0); PROTEIN,URINE NEGATIVE (NEGATIVE); UGLUCOSE 100 MG/DL mg/dL (NEGATIVE); UROBILINOGEN,URINE 0.2 EU/dL (0.2)
[2022-04-07 08:41] LABS: ALANINE AMINOTRANSFERASE 40 U/L (12-78); ALBUMIN 3.5 g/dL (3.4-5.0); ALCOHOL, BLOOD < 3 mg/dL (0-0); ALKALINE PHOSPHATASE 81 U/L (46-116); ASPARTATE AMINOTRANSFERASE 55 U/L (15-37); BILIRUBIN,DIRECT 0.2 mg/dL (0.0-0.2); BILIRUBIN,TOTAL 0.5 mg/dL (0.2-1.0); CALCIUM, SERUM 8.3 mg/dL (8.5-10.1); CARBON DIOXIDE 26 mmol/L (21-32); CHLORIDE 107 mmol/L (98-107); CREATININE 1.9 mg/dL (0.6-1.3); GLUCOSE 118 mg/dL (74-106); POTASSIUM 3.4 mmol/L (3.5-5.1); SODIUM SERUM 141 mmol/L (136-145); TOTAL PROTEIN, SERUM 6.8 g/dL (6.4-8.2); UREA NITROGEN, BLOOD 20 mg/dL (7-18)
[2022-04-07 09:15] LABS: ACETAMINOPHEN 0 ug/ml (10-30)
--- NOTE | 2022-04-07 10:38 | NUR ---
SS consult requested for anxiety attack. Pt. is a 67-year-old male who was admitted to [facility] on 04/07/2022 due to anxiety. Upon SS consult, pt. is alert and oriented x4. Pt. presents with an anxious mood. Pt. appears well-kempt and provides appropriate eye contact. Pt. was cooperative throughout the assessment. Pt. stated he came to the ED due to anxiety and manic episode. Pt. stated his two years ago in March which causes him to have a manic episode. Pt. stated he has bipolar disorder and has a therapist and psychiatrist. Pt. stated he wants to be evaluated for a 51/50 hold. Pt. denies suicidal and homicidal ideation. Pt. denies visual and auditory hallucinations. Pt. stated he believes he is having kidney failure and wants to be examined. Pt. stated he has Parkinson's disease and glaucoma. systems requirements planner explored pt.'s substance use history. Pt. denied substance use. Per EMR, pt. tested positive for cannabinoids. systems requirements planner explored pt.'s social support. Pt. stated he has one sister and one brother but did not provide their contact information. Pt. stated he lives alone at [address] [place] [address]. systems requirements planner provided the following mental health resources: Counseling--Outpatient [facility] [address], [place] [address] (Specializes in in-depth psychotherapy for emotional distress: anxiety, depression, interpersonal conflicts, life transitions, childhood abuse) [facility] [address] [place] [address] (Assist with solving problem marital difficulties, separation & divorce, aging parents, & grief, chronic & terminal illness) [facility] [address] [place] [address] (Deal with loss & grief, anxiety, marital difficulties) [facility] [address] [facility] [address] [place], [place] [address] (Provide in-home mental services to people who are incapable of leaving their homes) [facility] [address] [facility] [address] [facility] [address] [place] [address]
--- NOTE | 2022-04-07 11:40 | NUR ---
ART (PSYCH CLINICIAN) AT THE BEDSIDE.
--- NOTE | 2022-04-07 11:54 | NUR ---
CALLED PSYCH INTAKE AND WAS NOTIFIED THAT THE PT IS ABLE TO STAY AND THAT THE PT HAS A BED AVAILABLE FOR THE PT.
[2022-04-07] MEDS ORDERED: VALB40CA2 PO (13:25)
[2022-04-07] MEDS ORDERED: DIVA500T54 PO (13:25)
[2022-04-07] MEDS ORDERED: ROSU5TAB13 PO (13:25)
[2022-04-07] MEDS ORDERED: ZIPR80CA2 PO (13:25)
--- NOTE | 2022-04-07 13:33 | NUR ---
BED GIVEN 214
--- NOTE | 2022-04-07 13:58 | NUR ---
REPORT GIVEN TO CATY CASILLAS ROOM 214 FOR OLIMPIA
[2022-04-07 14:15] VITALS: BP 118/73
--- NOTE | 2022-04-07 14:15 | NUR ---
ADMITTED A 67 Y/O MALE ON VOL STATUS FROM [facility]. PATIENT STATED " I AM DEPRESSED AND SUFFER FROM HYPOMANIA . PATIENT ADMITTING DX.BIPOLAR AND MEDICAL DIAGNOSIS OF HTN ASTHMA AND W[place] .UPON FACE TO FACE EVALUATION, PATIENT APPEARED ALERT AND ORIENTED X 3, SEVERE ANXIETY AND DEPRESSION. PATIENT DISHEVELED AND UNKEMPT .PATIENT AMBULATORY AND SELF CARE . HEAD TO TOE ASSESSMENT DONE. SKIN INTACT . NO SOB, NO ACUTE DISTRESS, BREATHING EVEN AND UNLABORED, NO S/S OF PAIN AND DISCOMFORT. PATIENT IS UNDER THE CARE OF DR. SALAS AND JERE RUIZ . BELONGINGS COLLECTED FOR CONTRABAND CHECK. NOTIFIED JERE RUIZ TO RECONCILE MEDICATION. KEPT CLEAN, DRY AND COMFORTABLE. WILL CONTINUE TO MONITOR Q15 MINUTES FOR SAFETY.
--- NOTE | 2022-04-07 14:44 | NUR ---
MARY ELLEN Clinical Note: Pt brought to the hospital on a voluntary status due to pt having increased anxiety and stating that ativan has not been helpful.
--- NOTE | 2022-04-07 14:44 | NUR ---
MARY ELLEN Initial Discharge Note: Patient currently resides at [address] [place] [address]. [address] [place] [address]; [phone]. Pt does not have any supportive contact this time. Pt would want to return back home upon discharge. Pt currently goes to [facility] 3x[facility]week via [facility] [phone], with psychiatrist Dr. Dean. MARY ELLEN will work with the MD and pt to help coordinate appropriate discharge.
--- NOTE | 2022-04-07 14:55 | NUR ---
Donor Technician: [facility] [phone], SW attempted to contact pt's case reviewer and left a voicemail.
[2022-04-07] MEDS ORDERED: ACETAMINOPHEN 325 MG TABLET PO PRN (15:00)
[2022-04-07] MEDS ORDERED: BLOOD SUGAR DIAGNOSTIC 1 EACH STRIP IN ONE (15:00)
[2022-04-07] MEDS ORDERED: MAGNESIUM HYDROXIDE 30 ML UDC PO PRN (15:00)
[2022-04-07] MEDS ORDERED: LORAZEPAM 0.5 MG TABLET PO PRN (15:00)
[2022-04-07 16:00] VITALS: BP 132/74
--- NOTE | 2022-04-07 16:53 | NUR ---
Patient c/o anxiety medicated with Ativan 1mg will continue to monitor .
[2022-04-07 20:16] VITALS: BP 115/76
--- NOTE | 2022-04-07 20:22 | NUR ---
GPS RN OPENING NOTES: RECEIVED PATIENT AMBULATING IN HALLWAY, A/O X3. APPEARS DEPRESSED, BLUNTED AFFECT, GUARDED, DISORGANIZED, PASSIVE, COOPERATIVE. PATIENT ENCOURAGED TO VERBALIZE FEELINGS. DENIES SI, HI AND PAIN AT THIS TIME. NO S/S OF DISTRESS. RESPIRATION EVEN AND UNLABORED WITH EQUAL RISE AND FALL OF THE CHEST, ON ROOM AIR. OFFERED FLUID AND SNACKS TOLERATED. WILL CONTINUE TO MONITOR Q15 FOR MOOD, SAFETY AND BEHAVIOR.
--- NOTE | 2022-04-07 21:50 | NUR ---
RN NOTE: BEHAVIORAL EPISODE PATIENT 217 (FREDRICK PALACIOS) NOTED TO BE AMBULATING IN THE HALLWAY, APPROACHED ANOTHER PATIENT WHO IS SITTING IN THE MAXIME CHAIR AND IS CONFUSED/DISORGANIZED, PATIENT 217 STARTED TALKING TO THE OTHER PATIENT IN NIGERIAN LANGUAGE AND STARTED PUSHING HIS MAXIME CHAIR IN THE HALLWAY. REDIRECTED PATIENT 217 AND ASKED HIM NOT TO MOVE OR PUSH OTHER PATIENT'S MAXIME CHAIR DUE TO SAFETY REASONS. PATIENT 217 STOPPED IT FOR A WHILE BUT WHEN HE NOTICED THAT NURSE IS BUSY, HE STARTED PUSHING OTHER PATIENT'S MAXIME CHAIR AGAIN IN THE HALLWAY. NURSE NOTICED THAT OTHER PATIENT'S HANDS ARE ON THE SIDE OF MAXIME CHAIR TRAY WHILE SEATED AND HE COULD GET HURT BY SCRAPING HIS HAND AGAINST THE WALL SIDE RAIL. NURSE QUICKLY APPROACHED AND ASKED PATIENT 217 TO STOP PUSHING THE MAXIME CHAIR, PATIENT TOPPED PUSHING MAXIME CHAIR BUT SAID," YOU HAVE A SHARP TONGUE," ALSO PATIENT SAID SOMETHING IN NIGERIAN AND STATED," I NEED TO GO TO MY ROOM AND CRACK UP THERE. IT'S SO FUNNY." PATIENT 217 BEHAVIOR IS UNPREDICTABLE, UNCOOPERATIVE, ATTENTION SEEKING, NEEDY, VERBALLY ABUSIVE TOWARDS STAFF. PATIENT WALKED BACK TO HIS ROOM AFTER THAT.
[2022-04-08] MEDS: ZOLPIDEM TARTRATE 5 MG TABLET PO PRN (00:14)
--- NOTE | 2022-04-08 00:16 | NUR ---
GPS RN NOTES: PATIENT REQUESTED FOR SLEEP MEDICATION. AMBIEN 5MG GIVEN PO AT 0014. WILL CONTINUE TO MONITOR.
--- NOTE | 2022-04-08 04:13 | NUR ---
GPS RN NOTES: PATIENT IS RESTLESS, ANXIOUS, DEMANDING, NEEDY, VERBALLY AGGRESSIVE/ABUSIVE WITH STAFF, REFUSING TO FOLLOW REDIRECTION. PATIENT WENT TO ONE OF THE FIRE ALARMS AND TOLD NURSE "THIS IS MY THING, I REMEMBER PULLING IT SEVERAL TIMES". PATIENT WAS THEN ASKED TO STAY AWAY FROM THE FIRE ALARMS BUT STATED "THAT IS NOT POSSIBLE BUT WE'LL SEE". PATIENT REQUESTED FOR SLEEP MEDICATION AND WAS GIVEN AMBIEN 5MG AT ABOUT 0014. PATIENT WOKE UP AT ABOUT 0340, CAME TO THE NURSING STATION AND WAS TALKING LOUDLY, PATIENT WAS THEN ASKED TO REDUCE HIS VOICE OR GO BACK TO HIS ROOM BUT HE REFUSED INSTEAD PATIENT STARTED PEEING ON THE FLOOR, THEN WENT TO THE DAY ROOM. PER COMMUNICATIONS CLERK PATIENT WAS VERBALLY AGGRESSIVE/ABUSIVE TOWARDS SECURITY STAFF CALLING HIM NIGGER, AND TRIED TO PUSHED SECURITY STAFF AND ALMOST FELL SO SECURITY STAFF ASSISTED HIM TO THE FLOOR TO PREVENT HIM FROM FALLING. PATIENT STARTED CURSING, YELLING, WENT TO HIS ROOM AND STARTED BANGING ON THE WALL WITH HIS FIST ASKING FOR DIAPER AND WATER WHICH WAS PROVIDED FOR HIM. PATIENT STARTED ASKING TO BE PUT ON RESTRAINT SO AT 0503 DR SALAS GAVE AN ORDER FOR ZYPREXA 5MG AND ATIVAN 1MG. Addendum: 04/08/22 at 0557 by JUNITO MOSS RN EVEN THOUGH PATIENT ASKED TO BE PUT ON RESTRAINT AND ASKED FOR IM, HE WAS NOT PUT ON RESTRAINT BECAUSE HE VOLUNTARILY TOOK THE IM. PATIENT REFUSED V/S. NO FAMILY WAS INFORMED BECAUSE PATIENT DID NOT GIVE A CONTACT NAME OR NUMBER. WILL CONTINUE TO MONITOR.
[2022-04-08] MEDS ORDERED: LORAZEPAM INJ 2 MG/ML VIAL IM ONE (05:30)
[2022-04-08] MEDS ORDERED: OLANZAPINE 10 MG VIAL IM ONE (05:30)
[2022-04-08 08:00] VITALS: BP 100/83
[2022-04-08 08:07] LABS: ALBUMIN 3.7 g/dL (3.4-5.0); BILIRUBIN,TOTAL 0.8 mg/dL (0.2-1.0); CALCIUM, SERUM 8.8 mg/dL (8.5-10.1); CREATININE 1.8 mg/dL (0.6-1.3); POTASSIUM 3.6 mmol/L (3.5-5.1); TOTAL PROTEIN, SERUM 7.1 g/dL (6.4-8.2)
[2022-04-08 08:34] LABS: CHOLESTEROL 138 mg/dL (<200); HDL CHOLESTEROL 50 mg/dL (40-60); LDL 70 mg/dL (0-99); TRIGLYCERIDES 127 mg/dL (30-150)
[2022-04-08] MEDS ORDERED: DIVALPROEX SODIUM 500 MG TABLET.DR PO SCH (09:00)
[2022-04-08] MEDS ORDERED: clonazePAM 0.5 MG TABLET PO SCH (09:00)
[2022-04-08] MEDS ORDERED: hydrOXYzine PAMOATE 25 MG CAPSULE PO PRN (09:00)
[2022-04-08] MEDS ORDERED: ZIPRASIDONE 20 MG CAPSULE PO SCH (09:00)
[2022-04-08] MEDS: ZIPRASIDONE 20 MG CAPSULE PO SCH ×2 (10:20→17:01)
[2022-04-08] MEDS: DIVALPROEX SODIUM 500 MG TABLET.DR PO SCH ×2 (10:21→20:50)
--- NOTE | 2022-04-08 10:22 | NUR ---
[facility]: MARY ELLEN contacted [facility] ([phone]) and spoke with Paz, switchboard receptionist, requesting to speak to patient's foster care case manager Dread. Paz got this writers information and stated foster care case manager Dread will contact this sign writer letterer or painter.
[2022-04-08] MEDS: clonazePAM 0.5 MG TABLET PO SCH ×2 (12:20→17:01)
--- NOTE | 2022-04-08 12:52 | NUR ---
Email Marketing Intern: MARY ELLEN spoke with patient's outsole caser Dread ([phone]) and he stated that pt is in [facility] program for IOP and upon dc he will resume the services. Dread stated to encourage pt to go to a nursing facility.
--- NOTE | 2022-04-08 12:54 | NUR ---
SW Note: SW attempted to offer pt nursing facility or assisted living option and pt yelled at this content writer stating "No, absolutely not.. I have my own home and own care. I do not need to go to a facility".
[2022-04-08 16:00] VITALS: BP 125/79
[2022-04-08] MEDS ORDERED: ZIPRASIDONE HCL 80 MG PO SCH (17:00)
[2022-04-08] MEDS ORDERED: DIVALPROEX SODIUM 500 MG PO SCH (17:00)
--- NOTE | 2022-04-08 19:15 | NUR ---
GPS RN NOTES RECEIVED PATIENT IN BED AWAKE, ALERT AND ORIENTED X3. ABLE TO MAKE NEEDS KNOWN. NO S/SX OF ACUTE DISTRESS NOTED. PATIENT IS ANXIOUS, NEEDY, DEMANDING, AFFECT IS BLUNTED, REDIRECTABLE. SAFETY PRECAUTIONS MAINTAINED. WILL CONTINUE TO MONITOR Q15MIN ROUNDS FOR SAFETY AND BEHAVIOR.
[2022-04-08 20:00] VITALS: BP 118/79
[2022-04-09 08:00] VITALS: BP 123/73
[2022-04-09] MEDS: ZIPRASIDONE 20 MG CAPSULE PO SCH ×2 (08:55→16:24)
[2022-04-09] MEDS: ATORVASTATIN 10 MG TABLET PO SCH (08:55)
[2022-04-09] MEDS: clonazePAM 0.5 MG TABLET PO SCH ×3 (08:55→16:24)
[2022-04-09] MEDS: DIVALPROEX SODIUM 500 MG TABLET.DR PO SCH ×3 (08:55→20:17)
[2022-04-09] MEDS ORDERED: Medication Not On Formulary EA (Valbenazine Tosylate (Ingrezza) 40 MG) PO SCH (09:00)
[2022-04-09] MEDS: MAG HYDROX/AL HYDROX/SIMETH 30 ML UDC PO PRN ×2 (11:00→20:15)
--- NOTE | 2022-04-09 11:00 | NUR ---
RN-NOTES PATIENT C/O INDIGESTION. MAALOX 30ML GIVEN PRN ORDER.
--- NOTE | 2022-04-09 15:29 | NUR ---
Dam Tender Assistant: MARY ELLEN spoke with patient's dependency case manager Dread ([phone]) will be going out of town for vacation. Dread stated that Paz ([phone]) and Angie ([phone]) to contact the nurses to help.
[2022-04-09 16:00] VITALS: BP 131/98
--- NOTE | 2022-04-09 18:34 | NUR ---
RN-NOTES PATIENT IS VISIBLE IN THE UNIT ,AMBULATORY WITH STEADY GAIT. COMPLIANT WITH MEDICATIONS. NOTED WITH NEEDY,DEMANDING HYPERVERBAL BEHAVIOR. ALL NEEDS ATTENDED AND ANTICIPATED. WILL CONT. MONITORING FOR SAFETY AND BEHAVIOR.WILL ENDORSE TO INCOMING SHIFT FOR CONTINUITY OF CARE.
--- NOTE | 2022-04-09 19:05 | NUR ---
EMBROIDERY SPECIALIST Note: Pt rcvd in bed, sleeping comfortably at this time, no s/sx of distress, easy to arouse. Will cont to monitor.
[2022-04-09 20:00] VITALS: BP 138/71
[2022-04-09] MEDS: ZOLPIDEM TARTRATE 5 MG TABLET PO PRN (21:31)
--- NOTE | 2022-04-09 21:31 | NUR ---
SUPERVISOR INSTRUMENT MAINTENANCE NOTE: PRN AMBIEN 5 MG GIVEN TO PT PER PT'S REQUEST FOR C/O INSOMNIA.
--- NOTE | 2022-04-10 05:13 | NUR ---
DIPLOMA MEDICAL ASSISTANT Note: Pt slept well last night after PRN Ambien was given, woke up early around 3am and walking in the hallway, provided pt with books to read, and attended needs, pt was appropriate and calm during shift, no episode of agitation noted, compliant with his medicine. No significant change of condition noted during shift. Pt is awake and calm at this time, in his bedroom.
[2022-04-10] MEDS ORDERED: BENZTROPINE MESYLATE (1 MG) 1 MG TABLET PO PRN (07:30)
[2022-04-10] MEDS: ZIPRASIDONE 20 MG CAPSULE PO SCH (08:03)
[2022-04-10] MEDS: clonazePAM 0.5 MG TABLET PO SCH (08:04)
[2022-04-10] MEDS: DIVALPROEX SODIUM 500 MG TABLET.DR PO SCH (08:04)
[2022-04-10] MEDS: ATORVASTATIN 10 MG TABLET PO SCH (08:04)
--- NOTE | 2022-04-10 08:48 | NUR ---
RN-NOTES SALONI BY DR. FINNEY WITH ORDER OF ENSURE SUPPLEMENT TID.NOTED AND CARRIED OUT.
[2022-04-10 10:23] VITALS: BP 112/82
--- NOTE | 2022-04-10 10:34 | NUR ---
MARY ELLEN Coordination of Care: Pt. will resume [facility] "[facility]" 3x/week via IOP [phone], manager of case management Dread, who is out of town requested to contact Paz CASILLAS ([phone]) (F:[phone]) who stated that pt will resume services on 04/13/2022, pt will see (Psychiatrist) Dr. Dean at [id number] [place] [address]; [phone]) at his IOP program. Pt. has been instructed to see is PCP at Dr. Sanchez at [facility] on May 19 at 10:40AM, scheduled by Rita. MARY ELLEN had faxed pt's clincials to [facility] attn to Paz ([phone]).
--- NOTE | 2022-04-10 10:35 | NUR ---
Discharge Note: Pt. will be discharged to Home [facility] [[address] [facility]. [address] [facility] [address]; [phone]]. Pt will be provided with taxi at 1PM. Pt. is independent with his ADLs. Pt appears to be alert and oriented x4 (place, self, time, situation) & with euthymic mood. Pt denies both suicidal and homicidal ideations. Pt appears to be ambulatory with from wheel walker. Pt appears to be well-groomed and appropriately dressed. Pt. will resume [facility] "[facility]" 3x[facility]week via [facility] [phone], mental health case manager Dread, who is out of town requested to contact Paz CASILLAS ([phone]) ([phone]) who stated that pt will resume services on 04/13/2022, pt will see (Psychiatrist) Dr. Dean at [address] [place] [phone]; ([phone]) at his IOP program. Pt. has been instructed to see is PCP at Dr. Sanchez at [facility] on May 19 at 10:40AM. The multidisciplinary exit care form was done, printed, signed, and given to the patient.
--- NOTE | 2022-04-10 11:22 | NUR ---
MARY ELLEN Note: MARY ELLEN and charge nurse Johan assessed pt and pt appeared drowsy unsafe for him to drive his car. Pt was understanding of this and agreed for taxi.
--- NOTE | 2022-04-10 11:31 | NUR ---
RN-NOTES PATIENT DISCHARGE AMA,DR. ZARATE (PSYCHIATRIST) AND DR. FINNEY ( CHAPTER RELATIONS ADMINISTRATOR) BOTH MADE AWARE. PATIENT A/O X4,AMBULATORY STEADY GAIT.PATIENT DID NOT VERBALIZE SI/HI,DENIES VISUAL AUDITORY HALLUCINATIONS AT THE TIME OF DISCHARGE. PATIENT LEFT THE UNIT IN STABLE CONDITION WITH ALL BELONGINGS .ACCOMPANIED BY THE ACTIVITY STAFF TO THE LOBBY FOR SAFETY. VS BP 110/80 P78,R17,TEMP.97.7 AND O2 SAT 99% RA.
[2022-04-10] MEDS ORDERED: ENSURE ENLIVE CHOC 237 ML CAN PO SCH (12:00)
== END 2022-04-10 11:30 | disposition home or self-care (01) | DRG 885 ==
LOC: ER 07:22 → GPS 14:03
PROVIDERS: ADMIT Psychiatry & Neurology Psychiatry; ATTEND Internal Medicine
DX: F31.2 Bipolar disorder, current episode manic severe with psychotic features (principal); N18.30 Chronic kidney disease, stage 3 unspecified; N17.0 Acute kidney failure with tubular necrosis; J45.909 Unspecified asthma, uncomplicated; Z20.822 Contact with and (suspected) exposure to COVID-19; I12.9 Hypertensive chronic kidney disease with stage 1 through stage 4 chronic kidney disease, or unspecified chronic kidney disease; I25.2 Old myocardial infarction; Z88.7 Allergy status to serum and vaccine; I25.10 Atherosclerotic heart disease of native coronary artery without angina pectoris; Z79.899 Other long term (current) drug therapy; T43.95XA Adverse effect of unspecified psychotropic drug, initial encounter; Y92.009 Unspecified place in unspecified non-institutional (private) residence as the place of occurrence of the external cause; E87.6 Hypokalemia; Z91.51 Personal history of suicidal behavior
CPT/HCPCS: 36415; 76770-TC; 80048-TC; 80053-TC; 80061-TC; 80076-TC; 80164-TC; 84484-TC; 85025-TC; 87081-TC; 94799-TC; C9803; G0480; J2060; J3490; Q0177